=== PATIENT | male | born 1950 | race Caucasian/White ===

== ENCOUNTER → 2017-01-12 | Outpatient (CLI) | payer OTHER ==
--- NOTE | 2017-01-12 19:28 | CARD ---
APPROVED REPORT EXAM: Two-dimensional and M-mode echocardiogram with Doppler and color Doppler. Other Information Quality : GoodHR: 70bpm Rhythm : NSR INDICATION Hypertension/HCVD Staphylococcal arthritis of right hip 2D DIMENSIONS RVDd2.7 (2.9-3.5cm)Left Atrium(2D)3.6 (1.6-4.0cm) IVSd0.8 (0.7-1.1cm)Aortic Root(2D)3.1 (2.0-3.7cm) LVDd5.2 (3.9-5.9cm)LVOT Diameter2.3 (1.8-2.4cm) PWd0.8 (0.7-1.1cm)LVDs3.4 (2.5-4.0cm) FS (%) 34.5 %SV82.6 ml LVEF(%)63.0 (>50%) Aortic Valve AoV Peak Alfred.174.2cm/sAoV VTI37.2cm AO Peak GR.12.1mmHgLVOT Peak Alfred.123.6cm/s AO Mean GR.6mmHgAVA (VMAX)2.84cm2 Mitral Valve MV E Wdiqjzbu20.6cm/sMV E Peak Gr.3mmHg MV DECEL [id number] A Xygknybm02.5cm/s MV E Mean Gr.1mmHgE/A Ratio1.4 MV A [id number] TDI Lateral E' P. V16.00cm/sMedial E' P. V11.00cm/s E/Lateral E'4.7E/Medial E'6.9 Pulmonary Valve PV Peak Vlbbofgk019.5cm/s Tricuspid Valve TR P. Nposbjbq645lf/sTR Peak Gr.30mmHg Pulmonary Vein S1 Ykeejpwa62.7cm/sD2 Nkmeurob37.3cm/s PVa [id number] LEFT VENTRICLE The left ventricle is normal size. There is normal left ventricular wall thickness. The left ventricu lar systolic function is normal and the ejection fraction is within normal range. The Ejection Fracti on is 63%. There is normal LV segmental wall motion. The left ventricular diastolic function and fill ing is normal for age. Please note, there is an incidental finding of a 1.2cm gall stone. RIGHT VENTRICLE The right ventricle is normal size. There is normal right ventricular wall thickness. The right ventr icular systolic function is normal. ATRIA The left atrium is mildly dilated. The right atrium size is normal. The interatrial septum is intact with no evidence for an atrial septal defect or patent foramen ovale as noted on 2-D or Doppler imagi ng. AORTIC VALVE The aortic valve is mildly sclerotic. The aortic valve is trileaflet. Doppler and Color Flow revealed no significant aortic regurgitation. There is no significant aortic valvular stenosis. MITRAL VALVE The mitral valve leaflets are mildly thickened. There is no evidence of mitral valve prolapse. There is no mitral valve stenosis. Doppler and Color Flow revealed no mitral valve regurgitation noted. TRICUSPID VALVE Doppler and Color Flow revealed mild tricuspid regurgitation. The pulmonary artery systolic pressure is estimated at 33 mmHg. PULMONIC VALVE Doppler and Color Flow revealed trace pulmonic valvular regurgitation. GREAT VESSELS The aortic root is normal in size. The ascending aorta is normal in size. The pulmonary artery is nor mal. The IVC is normal in size and collapses >50% with inspiration. PERICARDIAL EFFUSION There is no evidence of significant pericardial effusion. Critical Notification Critical Value: No <Conclusion> The left ventricular systolic function is normal and the ejection fraction is within normal range. The Ejection Fraction is 63%. The left ventricular diastolic function and filling is normal for age. Please note, there is an incid ental finding of a 1.2cm gall stone. The left atrium is mildly dilated. The right atrium size is normal. The aortic valve is mildly sclerotic. The aortic valve is trileaflet. The mitral valve leaflets are mildly thickened. Doppler and Color Flow revealed mild tricuspid regurgitation. The pulmonary artery systolic pressure is estimated at 33 mmHg. Doppler and Color Flow revealed trace pulmonic valvular regurgitation. There is no evidence of significant pericardial effusion.
== END | disposition home or self-care (01) ==
LOC: ECHO 09:30
PROVIDERS: ATTEND Internal Medicine Cardiovascular Disease
DX: I07.1 Rheumatic tricuspid insufficiency (principal); M00.051 Staphylococcal arthritis, right hip; I37.1 Nonrheumatic pulmonary valve insufficiency; I35.8 Other nonrheumatic aortic valve disorders; I10 Essential (primary) hypertension
CPT/HCPCS: 93306